=== PATIENT | male | born 1950 | race Caucasian/White ===

== ENCOUNTER 2016-10-20 05:24 | Outpatient (CLI) | payer MEDICARE ==
[2016-10-20 06:10] LABS: ALT (SGPT) 7 U/L (8-55); AST (SGOT) 23 U/L (5-34); Albumin 2.2 g/dL (3.4-4.8); Alkaline Phosphatase 467 U/L (40-150); Anion Gap 12 mmol/L (10-20); BUN (Urea Nitrogen) 14 mg/dL (8.4-25.7); Bilirubin, Total 1.4 mg/dL (0.2-1.2); Calc. Creatinine Clearance 0 mL/min (70-130); Carbon Dioxide 32 mmol/L (23-31); Chloride 96 mmol/L (98-107); Estimated GFR-MDRD 17; Globulin 3.2 g/dL (2.4-3.5); Glucose 147 mg/dL (80-115); Potassium 3.1 mmol/L (3.5-5.1); Protein, Total 5.4 g/dL (5.8-8.1); Sodium 137 mmol/L (136-145)
== END 2016-10-20 05:25 | disposition home or self-care (01) ==
LOC: BURLABSP 05:24
PROVIDERS: ATTEND Clinical Nurse Specialist Medical-Surgical
DX: Z48.21 Encounter for aftercare following heart transplant (principal); Z94.1 Heart transplant status
CPT/HCPCS: 36415; 80053; 80195; 80197

== ENCOUNTER 2016-10-27 09:16 | Outpatient (CLI) | payer MEDICARE ==
[2016-10-27 09:41] LABS: ALT (SGPT) 7 U/L (8-55); AST (SGOT) 27 U/L (5-34); Albumin 2.2 g/dL (3.4-4.8); Alkaline Phosphatase 510 U/L (40-150); Bilirubin, Total 1.5 mg/dL (0.2-1.2); Protein, Total 5.6 g/dL (5.8-8.1)
[2016-10-27 10:02] LABS: Hemoglobin 9.6 g/dL (14.0-18.0); Mean Corpuscular HGB CONC 31.3 g/dL (32.0-36.0); Mean Corpuscular Hemoglobin 30.5 pg (27.0-31.0); Mean Corpuscular Volume 97.5 fl (80.0-94.0); Platelet Count 93 thou/uL (130-400); RBC Distribution Width 17.3 % (11.5-14.5); Red Blood Cell (RBC) Count 3.15 mill/uL (4.70-6.10); White Blood Cell (WBC) Count 1.8 thou/uL (4.8-10.8)
== END 2016-10-27 09:17 | disposition home or self-care (01) ==
LOC: BURLABSP 09:16
PROVIDERS: ATTEND Clinical Nurse Specialist Medical-Surgical
DX: I10 Essential (primary) hypertension (principal); Z99.2 Dependence on renal dialysis
CPT/HCPCS: 36415; 85060